=== PATIENT | male | born 1955 | race Caucasian/White ===

== ENCOUNTER 2019-05-15 07:26 | Emergency (ER) | payer MEDICAID ==
[2019-05-15] MEDS ORDERED: Sodium Chloride 0.9% 1,000 ML ONE (08:01)
[2019-05-15 08:23] LABS: ALT (SGPT) 32 U/L (8-55); AST (SGOT) 94 U/L (5-34); Albumin 3.6 g/dL (3.4-4.8); Alkaline Phosphatase 67 U/L (40-110); Anion Gap 13 mmol/L (10-20); BUN (Urea Nitrogen) 21 mg/dL (8.4-25.7); Bilirubin, Total 0.4 mg/dL (0.2-1.2); Calc. Creatinine Clearance 0 mL/min (70-130); Calcium 8.6 mg/dL (7.8-10.44); Carbon Dioxide 23 mmol/L (23-31); Chloride 105 mmol/L (98-107); Estimated GFR-MDRD 69; Globulin 3.3 g/dL (2.4-3.5); Glucose 131 mg/dL (80-115); Potassium 3.4 mmol/L (3.5-5.1); Protein, Total 6.9 g/dL (5.8-8.1); Sodium 138 mmol/L (136-145)
[2019-05-15 08:24] LABS: Hemoglobin 13.2 g/dL (14.0-18.0); Mean Corpuscular HGB CONC 30.7 g/dL (32.0-36.0); Mean Corpuscular Hemoglobin 23.2 pg (27.0-31.0); Mean Corpuscular Volume 75.3 fL (78.0-98.0); Platelet Count 122 thou/uL (130-400); RBC Distribution Width 15.9 % (11.5-14.5); Red Blood Cell (RBC) Count 5.68 mill/uL (4.70-6.10); White Blood Cell (WBC) Count 6.1 thou/uL (4.8-10.8)
[2019-05-15 08:25] LABS: Anisocytosis SLIGHT = 6-15 cells (100X) (0-5/hpf); Eosinophils 2 % (0-10); Hypochromia SLIGHT = 6-15 cells (100X) (0-5/hpf); Lymphocytes 12 % (21-51); MDiff Complete? YES; Microcytosis SLIGHT = 6-15 cells (100X) (0-5/hpf); Monocytes 14 % (0-10); Neutrophil 72 % (42-75); Ovalocytes SLIGHT = 2-5 cells (100X) (0-1/hpf); Platelet Morphology Comment Appears Adequate
== END 2019-05-15 09:21 | disposition home or self-care (01) ==
LOC: NAV ERS 07:26
DX: R19.7 Diarrhea, unspecified (principal); I10 Essential (primary) hypertension; F17.210 Nicotine dependence, cigarettes, uncomplicated
CPT/HCPCS: 80053; 85025; 96360; J7050

== ENCOUNTER 2021-04-21 14:44 | Emergency (ER) | payer MEDICARE | END 2021-04-21 15:40 | disposition home or self-care (01) | LOC: NAV ERS 14:44 | DX: T63.331A Toxic effect of venom of brown recluse spider, accidental (unintentional), initial encounter (principal); H10.211 Acute toxic conjunctivitis, right eye; I10 Essential (primary) hypertension; F17.210 Nicotine dependence, cigarettes, uncomplicated; Z79.899 Other long term (current) drug therapy | CPT/HCPCS: 99283 ==

== ENCOUNTER 2021-08-25 13:15 | Emergency (ER) | payer MEDICAID, MEDICARE ==
[2021-08-25 14:26] LABS: ALT (SGPT) 16 U/L (8-55); AST (SGOT) 38 U/L (5-34); Albumin 3.1 g/dL (3.4-4.8); Alkaline Phosphatase 71 U/L (40-110); Anion Gap 16 mmol/L (10-20); BUN (Urea Nitrogen) 25 mg/dL (8.4-25.7); Bilirubin, Total 0.7 mg/dL (0.2-1.2); Calc. Creatinine Clearance 0 mL/min (70-130); Calcium 8.4 mg/dL (7.8-10.44); Carbon Dioxide 21 mmol/L (23-31); Chloride 99 mmol/L (98-107); Estimated GFR 64; Globulin 3.4 g/dL (2.4-3.5); Glucose 129 mg/dL (80-115); Potassium 3.5 mmol/L (3.5-5.1); Protein, Total 6.5 g/dL (5.8-8.1); Sodium 132 mmol/L (136-145)
[2021-08-25 14:35] LABS: Hemoglobin 8.3 g/dL (14.0-18.0); Mean Corpuscular HGB CONC 28.6 g/dL (32.0-36.0); Mean Corpuscular Hemoglobin 18.2 pg (27.0-31.0); Mean Corpuscular Volume 63.7 fL (78.0-98.0); Red Blood Cell (RBC) Count 4.58 mill/uL (4.70-6.10); White Blood Cell (WBC) Count 7.3 thou/uL (4.8-10.8)
[2021-08-25 14:36] LABS: Band 8 % (5-11); Eosinophils 5 % (0-10); Lymphocytes 10 % (21-51); MDiff Complete? YES; Manual Diff?? YES; Mean Platelet Volume 9.6 fL (7.4-10.4); Monocytes 6 % (0-10); Neutrophil 71 % (42-75); Platelet Count 132 thou/uL (130-400); RBC Distribution Width 16.3 % (11.5-14.5)
[2021-08-25 14:37] LABS: Anisocytosis MODERATE=16-30 cells (100X) (0-5/hpf); Hypochromia SLIGHT = 6-15 cells (100X) (0-5/hpf); Microcytosis MODERATE=15-30 cells (100X) (0-5/hpf); Ovalocytes SLIGHT = 2-5 cells (100X) (0-1/hpf); Spherocytes SLIGHT = 1-5 cells (100X) (None Seen); Target Cells MODERATE= 6-15 cells (100X) (0-1/hpf)
[2021-08-25 14:38] LABS: Platelet Morphology Comment Appears Adequate
[2021-08-25] MEDS ORDERED: Aspirin Chewable 81 MG TAB ONE (15:38)
[2021-08-25 15:41] LABS: CKMB 1.1 ng/mL (0-6.6)
[2021-08-25 16:35] LABS: SARS-CoV-2 NAA Rapid Test Not Detected (NotDetected)
[2021-08-25 18:03] LABS: CKMB 1.3 ng/mL (0-6.6)
== END 2021-08-25 18:55 | disposition short-term general hospital (02) ==
LOC: NAV ERS 13:15
DX: R06.00 Dyspnea, unspecified (principal); D64.9 Anemia, unspecified; R50.9 Fever, unspecified; R77.8 Other specified abnormalities of plasma proteins; Z20.822 Contact with and (suspected) exposure to COVID-19; I11.0 Hypertensive heart disease with heart failure; I50.9 Heart failure, unspecified; J44.9 Chronic obstructive pulmonary disease, unspecified; F17.210 Nicotine dependence, cigarettes, uncomplicated; Z79.899 Other long term (current) drug therapy
CPT/HCPCS: 71045; 80053; 82550; 82553; 83880; 84484; 85025; 93005; U0002